=== PATIENT | female | born 1955 | race Caucasian/White ===

== ENCOUNTER → 2017-01-22 | Outpatient (CLI) | payer OTHER ==
[~2017-01-22] MED LIST: ADVIL PM1 TABLET PO; ALEVE220 MG PO; BUSPIRONE HCL5 MG PO; CELEBREX200 MG PO; CENTRUM SILVER1 EAC3 PO; DIOVAN HCT 31 TABLE1 PO; ESTRACE0.5 MG PO; Ecotrin PO; Feosol PO; HYDROCHLOROTH12.5 M3 PO; HYDRODIURIL,O12.5 M2 PO; LOSARTAN-HCTZ1 EAC2 PO; MOBIC15 MG PO; MULTIVITAMIN1 EAC1 PO; MULTIVITAMIN1 EAC2 PO; PRAVACHOL20 MG PO; PREMARIN0.9 MG PO; SENOKOT S,PE1 TABLET PO; TRICOR145 MG PO; TYLENOL PM EX-1 EACH PO; TYLENOL REGULA325 MG PO; ULTRAM50 MG PO; VICODIN,LORT1 TABLET PO; Vicodin,Norco 5/325 PO; XANAX0.25 MG PO; XANAX0.5 MG PO; Z PACK PO
== END | disposition home or self-care (01) ==
LOC: NUC 10:54
DX: M51.36 Other intervertebral disc degeneration, lumbar region (principal); M54.5 Low back pain; M19.072 Primary osteoarthritis, left ankle and foot
CPT/HCPCS: 78315; A9503